=== PATIENT | female | born 1995 | race Two or more races ===

== ENCOUNTER 2019-01-24 21:44 | Emergency (ER) | payer SELFPAY ==
[~2019-01-24] VITALS: Ht 170.2 cm; Wt 56.0 kg
[2019-01-24] MEDS ORDERED: ONDANSETRON HCL 4MG/2ML INJ IV STA (22:42)
[2019-01-24] MEDS ORDERED: SODIUM CHLORIDE 0.9% 1,000 ML IV ONE (22:42)
[2019-01-24] MEDS ORDERED: LORAZEPAM 2MG/ML CPJ IV ONE (22:45)
[2019-01-24 23:06] LABS: BASOPHILS % 0.7 % (0.0-2.0); EOSINOPHILS % 1.8 % (0.0-5.0); HEMATOCRIT. 44.5 % (36.0-48.0); HEMOGLOBIN. 15.1 g/dL (12.0-16.0); LYMPHOCYTES % 31.3 % (20.0-50.0); MEAN CORPUSCULAR HEMOGLOBIN 31.1 pg (28.0-32.0); MEAN CORPUSCULAR VOLUME 91.9 fL (81.0-99.0); MEAN PLATELET VOLUME 9.7 fl (7.4-10.4); MONOCYTES % 3.9 % (2.0-8.0); NEUTROPHILS % 62.3 % (40.0-76.0); PLATELET 326 x1000/uL (130-400); RED BLOOD CELL COUNT 4.85 mill/uL (4.2-5.4)
[2019-01-24 23:08] LABS: CHLORIDE 103 mEq/L (98-107)
[2019-01-24 23:13] LABS: ETHANOL BLOOD < 10 mg/dL
[2019-01-24 23:17] LABS: CREATINE KINASE 72 IU/L (26-192); PARTIAL THROMBOPLASTIN TIME 20.3 sec (23.4-31.0); PROTHROMBIN TIME 9.7 sec (9.1-11.1)
[2019-01-24 23:20] LABS: HCG SCREEN NEGATIVE
[2019-01-24 23:27] LABS: CLARITY URINE CLEAR (CLEAR); COLOR URINE YELLOW (YELLOW); KETONES URINE NEGATIVE (NEGATIVE); LEUKOCYTE ESTERASE URINE NEGATIVE (NEGATIVE); NITRITE URINE NEGATIVE (NEGATIVE); OCCULT BLOOD URINE TRACE (NEGATIVE); PH URINE 6.5 (4.5-8.0); PROTEIN URINE NEGATIVE (NEGATIVE); SPECIFIC GRAVITY URINE 1.008 (1.005-1.030); UROBILINOGEN URINE 0.2 E.U./dL (0.2-1.0)
[2019-01-24 23:35] LABS: *AMPHETAMINES SCREEN URINE NEGATIVE (NEGATIVE)
[2019-01-24 23:36] LABS: *BARBITURATES SCREEN URINE NEGATIVE (NEGATIVE); *BENZODIAZEPINES SCREEN URINE NEGATIVE (NEGATIVE); *COCAINE SCREEN URINE NEGATIVE (NEGATIVE); METHADONE URINE SCREEN NEGATIVE (NEGATIVE); OPIATES URINE SCREEN NEGATIVE (NEGATIVE); PHENCYCLIDINE URINE SCREEN NEGATIVE (NEGATIVE)
[2019-01-24 23:51] LABS: CANNABINOID URINE SCREEN PRESUMTIVE POSITIVE (NEGATIVE)
[2019-01-25 01:35] VITALS: BP 92/48
== END 2019-01-25 01:36 | disposition home or self-care (01) ==
LOC: ER 21:44
DX: T40.7X1A Poisoning by cannabis (derivatives), accidental (unintentional), initial encounter (principal); G92 Toxic encephalopathy; Y92.89 Other specified places as the place of occurrence of the external cause
CPT/HCPCS: 36415; 80053; 80305; 80307; 80320; 80329; 81003; 81025; 82550; 83690; 83880; 84443; 84484; 84703; 85025; 85610; 85730; 93005; 96361; 96374; 96375; 99284; J2060; J2405; J7030; Z7610; G0480